=== PATIENT | female | born 1960 | race Hispanic/Latino ===

== ENCOUNTER 2018-08-01 08:58 | Emergency (ER) | payer SELFPAY ==
[2018-08-01] MEDS ORDERED: ALBUTEROL 2.5 MG/3 ML NEB SOL ONE (09:39)
[2018-08-01] MEDS ORDERED: IPRATROPIUM BROM 0.5MG/2.5ML ONE (09:39)
[2018-08-01] MEDS ORDERED: LORAZEPAM 0.5 MG TABLET ONE (09:40)
[2018-08-01] MEDS ORDERED: MAGNESIUM OXIDE 400 MG TAB ONE (09:40)
[2018-08-01] MEDS ORDERED: predniSONE 20 MG TAB ONE (09:40)
[2018-08-01] MEDS ORDERED: FAMOTIDINE 20 MG TAB ONE (09:41)
[2018-08-01] MEDS ORDERED: DEXAMETHASONE 10 MG/ML VIAL ONE (09:49)
--- NOTE | 2018-08-01 10:43 | ER ---
Nurse's Notes [facility] Name: Milka Riley Age: 58 yrs Sex: Female : 1960 Arrival Date: 08/01/2018 Time: 09:02 Bed 13 Private MD: None, None Diagnosis: Unspecified asthma with (acute) exacerbation Presentation: 08/01 09:13 Presenting complaint: Presenting complaint: SOB x 2 days. hb 09:13 Onset of symptoms was July 31, 2018. hb 09:13 Acuity: JASON 3 hb 09:13 Initial Sepsis Screen: Does the patient meet any 2 criteria? No. Patient's initial hb sepsis screen is negative. Does the patient have a suspected source of infection? No. Patient's initial sepsis screen is negative. 09:14 Transition of care: patient was not received from another setting of care. Risk hb Assessment: Do you want to hurt yourself or someone else? Patient reports no desire to harm self or others. Care prior to arrival: None. 09:14 Method Of Arrival: Ambulatory hb Triage Assessment: 09:15 General: Appears in no apparent distress. comfortable, Behavior is calm, cooperative. rb1 Historical: - Allergies: 09:12 moxifloxacin; hb - Home Meds: 09:13 levothyroxine oral [Active]; lisinopril 20 mg Oral tab 1 tab once daily [Active]; hb metoprolol tartrate 25 mg Oral tab 1 tab 2 times per day [Active]; prednisone 10 mg Oral tab once daily [Active]; Singulair 10 mg Oral tab 1 tab once daily [Active]; ventolin rotahaler inhl [Active]; - PMHx: 09:13 Asthma; Hypertension; Hypothyroidism; hb - Immunization history:: Adult Immunizations up to date. - Social history:: Smoking status: Patient/guardian denies using tobacco. - Ebola Screening: : No symptoms or risks identified at this time. Screenin:15 Abuse screen: Denies threats or abuse. Nutritional screening: No deficits noted. rb1 Tuberculosis screening: No symptoms or risk factors identified. Fall Risk None identified. Assessment: 09:15 General: Appears in no apparent distress. comfortable, obese, Behavior is calm, rb1 cooperative, Denies fever. Pain: Denies pain. Neuro: Level of Consciousness is awake, alert, obeys commands, Oriented to person, place, time, situation. Cardiovascular: Capillary refill < 3 seconds is brisk in bilateral fingers. Respiratory: Reports shortness of breath since x 2 days. GI: No signs and/or symptoms were reported involving the gastrointestinal system. : No signs and/or symptoms were reported regarding the genitourinary system. Derm: No signs and/or symptoms reported regarding the dermatologic system. Musculoskeletal: Range of motion: intact in all extremities. 10:15 Reassessment: Patient appears in no apparent distress at this time. Patient and/or rb1 family updated on plan of care and expected duration. Pain level reassessed. Patient is alert, oriented x 3, equal unlabored respirations, skin warm/dry/pink. Patient states symptoms have improved. 11:00 Reassessment: Patient appears in no apparent distress at this time. Patient and/or rb1 family updated on plan of care and expected duration. Pain level reassessed. Patient is alert, oriented x 3, equal unlabored respirations, skin warm/dry/pink. Patient denies pain at this time. Patient states feeling better. Vital Signs: 09:12 BP 196 / 88; Pulse 91; Resp 20; Temp 99.2(O); Pulse Ox 94% on R/A; hb 10:12 BP 183 / 83; Pulse 81; Resp 19; Pulse Ox 95% on R/A; rb1 11:00 BP 188 / 77; Pulse 79; Resp 20; Pulse Ox 95% on R/A; rb1 ED Course: 09:02 Patient arrived in ED. sb2 09:02 None, None is Private Physician. sb2 09:05 Cristina Peña, RN is Primary Nurse. rb1 09:07 [facility]C [facility]. snw 09:07 Gulshan Velez MD is Attending Physician. snw 09:13 Arm band placed on. hb 09:15 Patient has correct armband on for positive identification. Bed in low position. Call rb1 light in reach. Side rails up X 1. 09:26 Triage completed. hb 11:01 No provider procedures requiring assistance completed. Patient did not have IV access rb1 during this emergency room visit. Administered Medications: :32 Drug: Magnesium 400 mg Route: PO; rb1 10:00 Follow up: Response: No adverse reaction rb1 :32 Drug: Albuterol - atroVENT (3:1) (2.5 mg - 0.5 mg) 3 ml Route: Nebulizer; rb1 10:00 Follow up: Response: No adverse reaction; Marked relief of symptoms rb1 09:32 Drug: Pepcid 20 mg Route: PO; rb1 10:00 Follow up: Response: No adverse reaction rb1 09:32 Drug: Ativan 0.5 mg Route: PO; rb1 10:00 Follow up: Response: No adverse reaction; Anxiety decreased rb1 09:45 Drug: Decadron 10 mg Route: IM; Site: left deltoid; rb1 10:00 Follow up: Response: No adverse reaction rb1 09:56 Not Given (provider changed order): predniSONE 40 mg PO once rb1 Outcome: 10:42 Discharge ordered by . snw 11:01 Patient left the ED. rb1 11:01 Discharged to home ambulatory. rb1 11:01 Condition: stable 11:01 Discharge instructions given to patient, Instructed on discharge instructions, follow up and referral plans. medication usage, Demonstrated understanding of instructions, follow-up care, medications, Prescriptions given X 4. Signatures: Irina Martinez, GRINDER SET UP OPERATOR-C GRINDER SET UP OPERATOR-Csnw Cristina Peña, RN RN rb1 Ester Honeycutt, JENNIFER RN Tonya Molina sb2 Corrections: (The following items were deleted from the chart) 09:12 09:12 BP 196 / ???; Pulse 91bpm; Resp 88bpm; Pulse Ox 91% RA; Temp 99.2F Oral; hb hb 09:16 09:12 BP 196 / ???; Pulse 91bpm; Resp 20bpm; Pulse Ox 91% RA; Temp 99.2F Oral; hb hb 09:26 09:14 Presenting complaint: hb hb
--- NOTE | 2018-08-01 10:43 | EDPHYS ---
Physician Documentation [facility] Name: Milka Riley Age: 58 yrs Sex: Female : 1960 Arrival Date: 08/01/2018 Time: 09:02 Bed 13 Private MD: None, None ED Physician Gulshan Velez HPI: 08/01 09:40 This 58 yrs old Female presents to ER via Ambulatory with complaints of Asthma snw Exacerbation. 09:40 The patient presents to the emergency department with wheezing, Current therapy: snw albuterol nebs, that began weather, the patient was reported to have audible wheezing, chest tightness, non-productive cough, trouble breathing. Onset: The symptoms/episode began/occurred 4 day(s) ago, and became worse and became persistent. Associated signs and symptoms: The patient has no apparent associated signs or symptoms. Severity of symptoms: At their worst the symptoms were moderate severe in the emergency department the symptoms are unchanged. The patient has experienced similar episodes in the past, multiple times. The patient has not recently seen a physician. Historical: - Allergies: 09:12 moxifloxacin; hb - Home Meds: 09:13 levothyroxine oral [Active]; lisinopril 20 mg Oral tab 1 tab once daily [Active]; hb metoprolol tartrate 25 mg Oral tab 1 tab 2 times per day [Active]; prednisone 10 mg Oral tab once daily [Active]; Singulair 10 mg Oral tab 1 tab once daily [Active]; ventolin rotahaler inhl [Active]; - PMHx: 09:13 Asthma; Hypertension; Hypothyroidism; hb - Immunization history:: Adult Immunizations up to date. - Social history:: Smoking status: Patient/guardian denies using tobacco. - Ebola Screening: : No symptoms or risks identified at this time. ROS: 09:38 Constitutional: Negative for fever, chills, and weight loss, Eyes: Negative for injury, snw pain, redness, and discharge, ENT: Negative for injury, pain, and discharge, Neck: Negative for injury, pain, and swelling, Cardiovascular: Negative for chest pain, palpitations, and edema, Abdomen/GI: Negative for abdominal pain, nausea, vomiting, diarrhea, and constipation, Back: Negative for injury and pain, : Negative for injury, bleeding, discharge, and swelling, MS/Extremity: Negative for injury and deformity, Skin: Negative for injury, rash, and discoloration, Neuro: Negative for headache, weakness, numbness, tingling, and seizure, Psych: Negative for depression, anxiety, suicide ideation, homicidal ideation, and hallucinations. 09:38 Respiratory: Positive for cough, shortness of breath, at rest. wheezing. Exam: 09:37 Constitutional: This is a well developed, well nourished patient who is awake, alert, snw and in no acute distress. Head/Face: Normocephalic, atraumatic. Eyes: Pupils equal round and reactive to light, extra-ocular motions intact. Lids and lashes normal. Conjunctiva and sclera are non-icteric and not injected. Cornea within normal limits. Periorbital areas with no swelling, redness, or edema. ENT: Nares patent. No nasal discharge, no septal abnormalities noted. Tympanic membranes are normal and external auditory canals are clear. Oropharynx with no redness, swelling, or masses, exudates, or evidence of obstruction, uvula midline. Mucous membranes moist. Neck: Trachea midline, no thyromegaly or masses palpated, and no cervical lymphadenopathy. Supple, full range of motion without nuchal rigidity, or vertebral point tenderness. No Meningismus. Chest/axilla: Normal chest wall appearance and motion. Nontender with no deformity. No lesions are appreciated. Cardiovascular: Regular rate and rhythm with a normal S1 and S2. No gallops, murmurs, or rubs. Normal PMI, no JVD. No pulse deficits. Abdomen/GI: Soft, non-tender, with normal bowel sounds. No distension or tympany. No guarding or rebound. No evidence of tenderness throughout. Back: No spinal tenderness. No costovertebral tenderness. Full range of motion. Skin: Warm, dry with normal turgor. Normal color with no rashes, no lesions, and no evidence of cellulitis. MS/ Extremity: Pulses equal, no cyanosis. Neurovascular intact. Full, normal range of motion. Neuro: Awake and alert, GCS 15, oriented to person, place, time, and situation. Cranial nerves II-XII grossly intact. Motor strength 5/5 in all extremities. Sensory grossly intact. Cerebellar exam normal. Normal gait. 09:37 Respiratory: mild respiratory distress is noted, moderate respiratory distress is noted, Respirations: shallow respirations, tachypnea, Breath sounds: decreased breath sounds, that are severe. Vital Signs: 09:12 BP 196 / 88; Pulse 91; Resp 20; Temp 99.2(O); Pulse Ox 94% on R/A; hb 10:12 BP 183 / 83; Pulse 81; Resp 19; Pulse Ox 95% on R/A; rb1 11:00 BP 188 / 77; Pulse 79; Resp 20; Pulse Ox 95% on R/A; rb1 MDM: 09:16 Patient medically screened. snw 10:44 Data reviewed: vital signs, nurses notes. Data interpreted: Pulse oximetry: on room air snw is 92 %. Interpretation: hypoxia. Plan: will initiate a nebulizer treatment. Counseling: I had a detailed discussion with the patient and/or guardian regarding: the historical points, exam findings, and any diagnostic results supporting the discharge/admit diagnosis, the presence of at least one elevated blood pressure reading (>120/80) during this emergency department visit, the need for outpatient follow up, to return to the emergency department if symptoms worsen or persist or if there are any questions or concerns that arise at home. Response to treatment: the patient's symptoms have markedly improved after treatment. Special discussion: I have referred the patient to see his PCP for further evaluation of high blood pressure. Based on the history and exam findings, there is no indication for further emergent testing or inpatient evaluation. I discussed with the patient/guardian the need to see the primary care provider for further evaluation of the symptoms. Administered Medications: 09:32 Drug: Magnesium 400 mg Route: PO; rb1 10:00 Follow up: Response: No adverse reaction rb1 09:32 Drug: Albuterol - atroVENT (3:1) (2.5 mg - 0.5 mg) 3 ml Route: Nebulizer; rb1 10:00 Follow up: Response: No adverse reaction; Marked relief of symptoms rb1 :32 Drug: Pepcid 20 mg Route: PO; rb1 10:00 Follow up: Response: No adverse reaction rb1 09:32 Drug: Ativan 0.5 mg Route: PO; rb1 10:00 Follow up: Response: No adverse reaction; Anxiety decreased rb1 09:45 Drug: Decadron 10 mg Route: IM; Site: left deltoid; rb1 10:00 Follow up: Response: No adverse reaction rb1 09:56 Not Given (provider changed order): predniSONE 40 mg PO once rb1 Disposition: 11:49 Co-signature as Attending Physician, Gulshan Velez MD I agree with the assessment and kdr plan of care. Disposition: 08/01/18 10:42 Discharged to Home. Impression: Unspecified asthma with (acute) exacerbation. - Condition is Stable. - Discharge Instructions: Asthma, Adult, Form - Asthma Action Plan, Adult, Asthma Attack Prevention, Adult. - Prescriptions for Hydrochlorothiazide 25 mg Oral Tablet - take 1 tablet by ORAL route once daily .; 30 tablet. Albuterol Sulfate 2.5 mg /3 mL (0.083 %) Inhalation Solution for Nebulization - inhale 1 unit by NEBULIZATION route every 8 hours As needed; 1 box. Prednisone 20 mg Oral Tablet - take 2 tablet by ORAL route once daily for 5 days; 10 tablet. Albuterol Sulfate 90 mcg/actuation - inhale 1-2 puff by INHALATION route every 4-6 hours; 1 Inhaler. - Medication Reconciliation Form, Thank You Letter, Antibiotic Education, Prescription Opioid Use form. - Follow up: Emergency Department; When: As needed; Reason: Worsening of condition. Follow up: Private Physician; When: 1 week; Reason: Recheck today's complaints, Continuance of care, Re-evaluation by your physician. Signatures: Gulshan Velez MD MD [facility] Irina Martinez, ASSISTANT DESIGNER-C ASSISTANT DESIGNER-Csnw Cristina Peña, RN RN rb1 Ester Honeycutt RN RN Corrections: (The following items were deleted from the chart) 11:01 10:42 08/01/2018 10:42 Discharged to Home. Impression: Unspecified asthma with (acute) rb1 exacerbation. Condition is Stable. Forms are Medication Reconciliation Form, Thank You Letter, Antibiotic Education, Prescription Opioid Use. Follow up: Emergency Department; When: As needed; Reason: Worsening of condition. Follow up: Private Physician; When: 1 week; Reason: Recheck today's complaints, Continuance of care, Re-evaluation by your physician. snw
[2018-08-01 11:06] VITALS: TEMP 99.2
[2018-08-01 11:07] VITALS: O2SAT 95
[2018-08-01 11:09] VITALS: BP 188/77
== END 2018-08-01 11:01 | disposition home or self-care (01) ==
LOC: ER 08:58
DX: J45.901 Unspecified asthma with (acute) exacerbation (principal); I10 Essential (primary) hypertension; E03.9 Hypothyroidism, unspecified; Z88.8 Allergy status to other drugs, medicaments and biological substances
CPT/HCPCS: 94640; 96372; 99284; J1100; J7512

== ENCOUNTER 2019-01-01 14:53 | Emergency (ER) | payer SELFPAY ==
[2019-01-01] MEDS ORDERED: ALBUTEROL 2.5 MG/3 ML NEB SOL ONE ×2 (15:26→16:26)
[2019-01-01] MEDS ORDERED: IPRATROPIUM BROM 0.5MG/2.5ML ONE ×2 (15:26→16:26)
[2019-01-01] MEDS ORDERED: predniSONE 20 MG TAB ONE (15:27)
--- NOTE | 2019-01-01 16:13 | EDPHYS ---
Physician Documentation [facility] Name: Milka Riley Age: 58 yrs Sex: Female : 1960 Arrival Date: 01/01/2019 Time: 14:54 Bed 7 Private MD: None, None ED Physician Harvey Tirado HPI: 01/01 15:36 This 58 yrs old Female presents to ER via Ambulatory with complaints of Asthma kb Exacerbation. 15:36 The patient presents to the emergency department with wheezing, Current therapy: None. kb Onset: The symptoms/episode began/occurred yesterday. Modifying factors: The symptoms are alleviated by nothing, the symptoms are aggravated by nothing. Associated signs and symptoms: The patient has no apparent associated signs or symptoms. Severity of symptoms: At their worst the symptoms were moderate in the emergency department the symptoms are unchanged. The patient has experienced similar episodes in the past, chronically. The patient has not recently seen a physician. PT states she normally has asthma attacks 3 times per year. States this one started yesterday and she wanted to come in before it get too bad. States "it just feels tight when I breathe." Pt speaking in full sentences, no distress noted. Slight wheezing to right posterior chest on full expiration. States "I normally come here and they give me breathing treatments and steroids.". Historical: - Allergies: 15:00 moxifloxacin; hj - PMHx: 15:00 Asthma; Hypertension; Hypothyroidism; hj - PSHx: 15:00 None; hj - Immunization history:: Adult Immunizations up to date. - Social history:: Smoking status: Patient/guardian denies using tobacco. - Ebola Screening: : Patient denies travel to an Ebola-affected area in the 21 days before illness onset No symptoms or risks identified at this time. ROS: 15:35 Constitutional: Negative for fever, chills, and weight loss, Neck: Negative for injury, kb pain, and swelling, Cardiovascular: Negative for chest pain, palpitations, and edema, Abdomen/GI: Negative for abdominal pain, nausea, vomiting, diarrhea, and constipation, Back: Negative for injury and pain, MS/Extremity: Negative for injury and deformity, Skin: Negative for injury, rash, and discoloration, Neuro: Negative for headache, weakness, numbness, tingling, and seizure. 15:35 Respiratory: Positive for shortness of breath. Exam: 15:30 Constitutional: This is a well developed, well nourished patient who is awake, alert, kb and in no acute distress. Head/Face: Normocephalic, atraumatic. Chest/axilla: Normal chest wall appearance and motion. Nontender with no deformity. No lesions are appreciated. Cardiovascular: Regular rate and rhythm with a normal S1 and S2. No gallops, murmurs, or rubs. Normal PMI, no JVD. No pulse deficits. Abdomen/GI: Soft, non-tender, with normal bowel sounds. No distension or tympany. No guarding or rebound. No evidence of tenderness throughout. Skin: Warm, dry with normal turgor. Normal color with no rashes, no lesions, and no evidence of cellulitis. MS/ Extremity: Pulses equal, no cyanosis. Neurovascular intact. Full, normal range of motion. Neuro: Awake and alert, GCS 15, oriented to person, place, time, and situation. Cranial nerves II-XII grossly intact. Motor strength 5/5 in all extremities. Sensory grossly intact. Cerebellar exam normal. Normal gait. 15:30 Respiratory: the patient does not display signs of respiratory distress, Respirations: normal, Breath sounds: wheezing: expiratory that is mild, is heard in the left posterior upper lobe and left posterior lower lobe. Vital Signs: 15:00 BP 178 / 77; Pulse 80; Resp 22; Temp 98.0(O); Pulse Ox 92% ; Weight 163.29 kg; Height 5 hj ft. 5 in. (165.10 cm); Pain 0/10; 16:44 BP 150 / 80; Pulse 89; Resp 22; Pulse Ox 97% on R/A; ae4 15:00 Body Mass Index 59.91 (163.29 kg, 165.10 cm) hj MDM: 15:05 Patient medically screened. kb 15:30 Data reviewed: vital signs, nurses notes. Data interpreted: Pulse oximetry: on room air kb is 92 %. Interpretation: borderline. 16:11 Counseling: I had a detailed discussion with the patient and/or guardian regarding: the kb historical points, exam findings, and any diagnostic results supporting the discharge/admit diagnosis, the need for outpatient follow up, a family practitioner, to return to the emergency department if symptoms worsen or persist or if there are any questions or concerns that arise at home. ED course: Pt reports she is feeling much better. . Administered Medications: 15:11 Drug: DuoNeb (3:1) (2.5 mg - 0.5 mg) 3 ml Route: Nebulizer; ae4 16:43 Follow up: Response: Wheezing diminished ae4 15:11 Drug: predniSONE 60 mg Route: PO; ae4 16:43 Follow up: Response: No adverse reaction ae4 16:13 Drug: DuoNeb (3:1) (2.5 mg - 0.5 mg) 3 ml Route: Nebulizer; ae4 16:43 Follow up: Response: Wheezing diminished; SOB decreased. ae4 Disposition: 18:41 Co-signature as Attending Physician, Harvey Tirado MD. rn Disposition: 01/01/19 16:12 Discharged to Home. Impression: Unspecified asthma with (acute) exacerbation. - Condition is Stable. - Discharge Instructions: Asthma, Adult, [id number]. - Prescriptions for Prednisone 20 mg Oral Tablet - take 1 tablet by ORAL route once daily for 5 days; 5 tablet. - Medication Reconciliation Form, Thank You Letter, Antibiotic Education, Prescription Opioid Use form. - Follow up: Emergency Department; When: As needed; Reason: Worsening of condition. Follow up: Private Physician; When: 2 - 3 days; Reason: Recheck today's complaints, Continuance of care, Re-evaluation by your physician. Signatures: Debora Gold, COURT ADMINISTRATOR-C COURT ADMINISTRATOR-Ckb Joanne Menchaca RN RN iw Nieto, Roman, MD MD rn Joaquin, Henry, RN RN hj Elliott, Andrea, RN RN ae4 Corrections: (The following items were deleted from the chart) 15:38 15:36 PT states she normally has asthma attacks 3 times per year. States this one kb started yesterday and she wanted to come in before it get too bad. States "it just feels tight when I breathe." Pt speaking in full sentences, no distress noted. Slight wheezing to right posterior chest on full expiration. . kb 16:48 16:12 01/01/2019 16:12 Discharged to Home. Impression: Unspecified asthma with (acute) iw exacerbation. Condition is Stable. Forms are Medication Reconciliation Form, Thank You Letter, Antibiotic Education, Prescription Opioid Use. Follow up: Emergency Department; When: As needed; Reason: Worsening of condition. Follow up: Private Physician; When: 2 - 3 days; Reason: Recheck today's complaints, Continuance of care, Re-evaluation by your physician. kb
--- NOTE | 2019-01-01 16:13 | ER ---
Nurse's Notes [facility] Name: Milka Riley Age: 58 yrs Sex: Female : 1960 Arrival Date: 01/01/2019 Time: 14:54 Bed 7 Private MD: None, None Diagnosis: Unspecified asthma with (acute) exacerbation Presentation: 01/01 14:58 Presenting complaint: Patient states: i have asthma attack, i feel tight in my throat hj area and i have wheezing; it started yesterday afternoon; denies fever;. Transition of care: patient was not received from another setting of care. Onset of symptoms was January 01, 2019. Risk Assessment: Do you want to hurt yourself or someone else? Patient reports no desire to harm self or others. Initial Sepsis Screen: Does the patient meet any 2 criteria? No. Patient's initial sepsis screen is negative. Does the patient have a suspected source of infection? No. Patient's initial sepsis screen is negative. Care prior to arrival: None. 14:58 Method Of Arrival: Ambulatory 14:58 Acuity: JASON 3 hj Historical: - Allergies: 15:00 moxifloxacin; hj - PMHx: 15:00 Asthma; Hypertension; Hypothyroidism; hj - PSHx: 15:00 None; hj - Immunization history:: Adult Immunizations up to date. - Social history:: Smoking status: Patient/guardian denies using tobacco. - Ebola Screening: : Patient denies travel to an Ebola-affected area in the 21 days before illness onset No symptoms or risks identified at this time. Screenin:29 Abuse screen: Denies threats or abuse. Nutritional screening: No deficits noted. ae4 Tuberculosis screening: No symptoms or risk factors identified. Fall Risk None identified. Assessment: 15:05 General: Appears uncomfortable, obese, Behavior is cooperative, anxious. Pain: Denies ae4 pain. Neuro: Level of Consciousness is awake, alert, obeys commands, Oriented to person, place, time, situation. Cardiovascular: Heart tones S1 S2 present Patient's skin is warm and dry. Respiratory: Airway is patent Respiratory effort is even, unlabored, Respiratory pattern is regular, symmetrical, tachypnea Breath sounds with wheezes bilaterally. Respiratory: Reports shortness of breath air hunger labored breathing Respiratory pattern is Mildly labored. GI: Abdomen is round obese. : No signs and/or symptoms were reported regarding the genitourinary system. EENT: No signs and/or symptoms were reported regarding the EENT system. Derm: No signs and/or symptoms reported regarding the dermatologic system. Musculoskeletal: No signs and/or symptoms reported regarding the musculoskeletal system. 15:26 Reassessment: Patient states she is already feeling relief from the breathing treatment.ae4 16:28 Reassessment: Patient appears in no apparent distress at this time. Patient has 2nd ae4 nebulizer treatment diffusing. Patient states feeling better. Patient states symptoms have improved. Vital Signs: 15:00 BP 178 / 77; Pulse 80; Resp 22; Temp 98.0(O); Pulse Ox 92% ; Weight 163.29 kg; Height 5 hj ft. 5 in. (165.10 cm); Pain 0/10; 16:44 BP 150 / 80; Pulse 89; Resp 22; Pulse Ox 97% on R/A; ae4 15:00 Body Mass Index 59.91 (163.29 kg, 165.10 cm) ED Course: 14:54 Patient arrived in ED. mr 14:54 None, None is Private Physician. mr 14:59 Triage completed. hj 15:01 Debora Gold FNP-C is PHCP. kb 15:02 Arm band placed on right wrist. hj 15:04 Debora Gold FNP-C is PHCP. kb 15:04 Harvey Tirado MD is Attending Physician. kb 15:08 Alfie Guerrero, JENNIFER is Primary Nurse. ae4 15:10 Bed in low position. Call light in reach. Side rails up X 1. Pulse ox on. ae4 16:45 No provider procedures requiring assistance completed. Patient did not have IV access ae4 during this emergency room visit. Administered Medications: 15:11 Drug: DuoNeb (3:1) (2.5 mg - 0.5 mg) 3 ml Route: Nebulizer; ae4 16:43 Follow up: Response: Wheezing diminished ae4 15:11 Drug: predniSONE 60 mg Route: PO; ae4 16:43 Follow up: Response: No adverse reaction ae4 16:13 Drug: DuoNeb (3:1) (2.5 mg - 0.5 mg) 3 ml Route: Nebulizer; ae4 16:43 Follow up: Response: Wheezing diminished; SOB decreased. ae4 Intake: Outcome: 16:12 Discharge ordered by MD. lange 16:45 Discharged to home ambulatory. ae4 16:45 Condition: stable 16:45 Discharge instructions given to patient, Instructed on discharge instructions, follow up and referral plans. medication usage, Demonstrated understanding of instructions. 16:48 Patient left the ED. iw Signatures: Debora Gold, [employer]Flaca Alvarado mr Joanne Menchaca RN RN iw Yair Hernandes, Alfie Ge RN, JENNIFER RN ae4 Corrections: (The following items were deleted from the chart) 15:04 15:00 Pulse 80bpm; Resp 22bpm; Pulse Ox 92%; Temp 98.0F Oral; 163.29 kg; Height 5 ft. 5 hj in.; BMI: 59.9; Pain 0/10; hj
[2019-01-01 16:57] VITALS: TEMP 98
[2019-01-01 16:59] VITALS: BP 150/80; O2SAT 97
== END 2019-01-01 16:48 | disposition home or self-care (01) ==
LOC: ER 14:53
DX: J45.901 Unspecified asthma with (acute) exacerbation (principal); I10 Essential (primary) hypertension; Z88.8 Allergy status to other drugs, medicaments and biological substances
CPT/HCPCS: 94640; 99284; J7512

== ENCOUNTER 2024-02-03 10:21 | Emergency (ER) | payer SELFPAY ==
[2024-02-03 11:12] LABS: Absolute Basophils 0.1 K/uL (0-0.5); Absolute Eosinophils 0.3 K/uL (0-0.5); Absolute Lymphocytes (CBC) 3.3 K/uL (0.7-4.9); Absolute Monocytes 0.8 K/uL (0.1-1.3); Absolute Neutrophil 8.7 K/uL (1.8-8.0); Basophils % 0.5 % (0-1.3); Eosinophils % 2.6 % (0-4.4); Hematocrit 45.6 % (36.0-45.0); Lymphocytes % 25.1 % (15.3-44.8); MCH 28.1 pg (27.0-35.0); MCV 85.1 fL (80-100); MPV 8.4 fL (7.6-11.3); Neutrophils % 65.8 % (41.7-73.7); Platelets 292 thou/uL (152-406); RBC Red Blood Cell Count 5.36 M/uL (3.86-4.86); Red Cell Distribution Width 15.4 % (12.1-15.2)
[2024-02-03 11:29] LABS: Anion Gap 7.4 mEq/L (5.0-15.0); Potassium 3.4 mEq/L (3.5-5.1); Troponin High Sensitivity 10.6 pg/mL (<58.9)
--- NOTE | 2024-02-03 11:45 | RAD REPORT ---
EXAM DESCRIPTION: Criss Single View02/03/2024 11:14 am CLINICAL HISTORY: hypertension COMPARISON: 2015 FINDINGS: Pulmonary vascular congestion present Heart is moderately enlarged Lungs appear clear of acute infiltrate
[2024-02-03] MEDS ORDERED: hydroCHLOROthiazide 25 MG TAB ONE (12:16)
[2024-02-03] MEDS ORDERED: AMLODIPINE 5 MG TAB ONE (12:16)
--- NOTE | 2024-02-03 13:02 | EDPHYS ---
Physician Documentation [facility] Name: Milka Riley Age: 63 yrs Sex: Female : 1960 Arrival Date: 02/03/2024 Time: 10:21 Bed 20 Private MD: ED Physician Jack Hood HPI: 02/02 12:57 This 63 yrs old Female presents to ER via EMS with complaints of High Blood kb Pressure. 12:57 Pt is a 63 year old female who presents for dizziness, lightheadedness and high blood kb pressure that started last night. States this is how she normally feels when her BP gets high. Reports she hasn't taken blood pressure medication in about a year because she didn't pay a bill at her dr's office so they stopped seeing her. Pt is supposed to take amlodipine 5mg daily and hydrochlorathiazide 25mg daily for HTN. . Historical: - Allergies: 10:36 moxifloxacin; ph - PMHx: 10:36 Asthma; Hypertension; Hypothyroidism; ph - Immunization history:: Adult Immunizations unknown. - Infectious Disease History:: Denies. - Social history:: Smoking status: Patient denies any tobacco usage or history of. ROS: 12:57 Constitutional: As per HPI kb Exam: 12:25 Constitutional: This is a well developed, well nourished patient who is awake, alert, kb and in no acute distress. Head/Face: Normocephalic, atraumatic. ENT: Moist Mucous membranes Cardiovascular: Regular rate Respiratory: Respirations even and unlabored. No increased work of breathing. Talking in full sentences Abdomen/GI: Soft, non-tender. No distention Skin: Warm, dry with normal turgor. Normal color. MS/ Extremity: Pulses equal, no cyanosis. Neurovascular intact. Full, normal range of motion. Neuro: Awake and alert, GCS 15, oriented to person, place, time, and situation. Moves all extremities. Normal gait. 12:25 ECG was reviewed by the Attending Physician. Vital Signs: 10:33 BP 222 / 104; Pulse 67; Resp 18; Temp 97.6; Pulse Ox 97% on R/A; Weight 170.1 kg; ph Height 5 ft. 5 in. ; 12:28 BP 182 / 69; Pulse 63 MON; Resp 24 S; Pulse Ox 99% on R/A; le1 13:51 BP 181 / 79; Pulse 62; Resp 18; Temp 98.3; Pulse Ox 98% ; le1 10:33 Body Mass Index 62.40 (170.10 kg, 165.1 cm) ph MDM: 10:34 Patient medically screened. kb 12:59 Differential diagnosis: Malignant HTN, abnormal electrolytes, HI. Data reviewed: vital kb signs, nurses notes. Consideration of Admission/Observation Escalation of care including admission/observation considered. admission considered but blood pressure trending down and pt is feeling better. Pt able to ambulate to restroom and states she feels like she is ready to go home. Will refill her HCTZ and amlodipine. Pt educated to follow up with PCP. Counseling: I had a detailed discussion with the patient and/or guardian regarding the historical points, exam findings, and any diagnostic results supporting the discharge/admit diagnosis, lab results, radiology results, the need for outpatient follow up, a family practitioner, to return to the emergency department if symptoms worsen or persist or if there are any questions or concerns that arise at home. 02/02 10:57 Order name: Basic Metabolic Panel; Complete Time: 11:43 kb 02/02 10:57 Order name: CBC with Diff; Complete Time: 11:22 kb 02/02 10:57 Order name: Magnesium; Complete Time: 11:43 kb 02/02 10:57 Order name: NT PRO-BNP; Complete Time: 11:43 kb 02/02 10:57 Order name: Troponin HS; Complete Time: 11:43 kb 02/02 10:57 Order name: XRAY Chest (1 view); Complete Time: 11:50 kb 02/02 10:57 Order name: EKG; Complete Time: 10:58 kb 02/02 10:57 Order name: Cardiac monitoring; Complete Time: 11:37 kb 02/02 10:57 Order name: EKG - Nurse/Tech; Complete Time: 11:37 kb 02/02 10:57 Order name: IV Saline Lock; Complete Time: 11:00 kb 02/02 10:57 Order name: Labs collected and sent; Complete Time: 11:00 kb 02/02 10:57 Order name: O2 Per Protocol; Complete Time: 11:37 kb 02/02 10:57 Order name: O2 Sat Monitoring; Complete Time: 11:37 kb 02/02 12:25 Order name: Vital Signs; Complete Time: 12:39 kb EC: Rate is 62 beats/min. Rhythm is regular. QRS [place] is Normal. AR interval is normal at kb 176 msec. QRS interval is normal at 92 msec. QT interval is normal at 424 msec. Administered Medications: 12:27 Drug: Norvasc PO 5 mg PO once Route: PO; le1 13:53 Follow up: Response: No adverse reaction; Blood pressure is lowered le1 12:27 Drug: Hydrochlorothiazide PO 25 mg PO once Route: PO; le1 13:53 Follow up: Response: No adverse reaction; Blood pressure is lowered le1 Disposition Summary: 02/03/24 13:01 Discharge Ordered Notes: Location: Home kb Condition: Stable kb Diagnosis - Essential (primary) hypertension kb Followup: kb - With: Emergency Department - When: As needed - Reason: Worsening of condition Followup: kb - With: Private Physician - When: 2 - 3 days - Reason: Recheck today's complaints, Continuance of care, Re-evaluation by your physician Discharge Instructions: - Discharge Summary Sheet kb - Hypertension, Adult, [id number] kb - How to Take Your Blood Pressure, [id number] kb - Managing Your Hypertension kb Forms: - Medication Reconciliation Form kb - Antibiotic Education kb - Prescription Opioid Use kb - Patient Portal Instructions kb - Leadership Thank You Letter kb Prescriptions: - Norvasc 5 mg Oral tablet - take 1 tablet ORAL route once daily; 30 tablet; Refills: 0, Product Selection kb Permitted - Hydrochlorothiazide 25 mg Oral Tablet - take 1 tablet ORAL route once daily .; 30 tablet; Refills: 0, Product Selection kb Permitted Signatures: Dispatcher [employer] EDMS Debora Gold, DEVELOPMENTAL EDUCATION INSTRUCTOR-C DEVELOPMENTAL EDUCATION INSTRUCTOR-Yue Dean RN RN Janusz Olson RN RN le1 Corrections: (The following items were deleted from the chart) 10:58 10:58 BASIC METABOLIC PANEL+C.LAB.BRZ ordered. EDMS EDMS 10:58 10:58 CBC+H.LAB.BRZ ordered. EDMS EDMS 10:58 10:58 MAGNESIUM+C.LAB.BRZ ordered. EDMS EDMS 10:58 10:58 PROBNP+C.LAB.BRZ ordered. EDMS EDMS 10:58 10:58 Troponin High Sensitivity+C.LAB.BRZ ordered. EDMS EDMS
--- NOTE | 2024-02-03 13:02 | ER ---
Nurse's Notes [facility] Name: Milka Riley Age: 63 yrs Sex: Female : 1960 Arrival Date: 02/03/2024 Time: 10:21 Bed 20 Private MD: Diagnosis: Essential (primary) hypertension Presentation: 02/02 10:33 Chief complaint: EMS states: Pt c/o dizziness since yesterday, BP high w/ systolic 200, ph pt reports hx of HTN but has not been on medication for a approx 1 year, denies chest pain or headache. Coronavirus screen: Vaccine status: Patient reports receiving the 2nd dose of the covid vaccine. Ebola Screen: No symptoms or risks identified at this time. Initial Sepsis Screen: Does the patient meet any 2 criteria? No. Patient's initial sepsis screen is negative. Does the patient have a suspected source of infection? No. Patient's initial sepsis screen is negative. Risk Assessment: Do you want to hurt yourself or someone else? Patient reports no desire to harm self or others. Onset of symptoms was February 03, 2024. 10:33 Method Of Arrival: EMS: [facility] ph 10:33 Acuity: JASON 2 ph Historical: - Allergies: 10:36 moxifloxacin; ph - PMHx: 10:36 Asthma; Hypertension; Hypothyroidism; ph - Immunization history:: Adult Immunizations unknown. - Infectious Disease History:: Denies. - Social history:: Smoking status: Patient denies any tobacco usage or history of. Screenin:[address] [facility] ED Fall Risk Assessment (Adult) History of falling in the last 3 months, le1 including since admission No falls in past 3 months (0 pts) Confusion or Disorientation No (0 pts) Intoxicated or Sedated No (0 pts) Impaired Gait Yes (1 pt) Mobility Assist Device Used No (0 pt) Altered Elimination No (0 pt) Score/Fall Risk Level 0 - 2 = Low Risk Oriented to surroundings, Maintained a safe environment, Educated pt \T\ family on fall prevention, incl call for assistance when getting out of bed, Assessed \T\ reinforced patient's understanding of fall precautions, Hourly rounding (assess needs \T\ fall precautionary measures) done. Abuse screen: Denies threats or abuse. Nutritional screening: No deficits noted. Tuberculosis screening: No symptoms or risk factors identified. Assessment: 12:27 Reassessment: No changes from previously documented assessment. General: Appears in no le1 apparent distress. comfortable, Behavior is calm, cooperative. Pain: Denies pain. Neuro: No deficits noted. Cardiovascular: No deficits noted. Respiratory: No deficits noted. GI: No deficits noted. : No deficits noted. Vital Signs: 10:33 BP 222 / 104; Pulse 67; Resp 18; Temp 97.6; Pulse Ox 97% on R/A; Weight 170.1 kg; ph Height 5 ft. 5 in. ; 12:28 BP 182 / 69; Pulse 63 MON; Resp 24 S; Pulse Ox 99% on R/A; le1 13:51 BP 181 / 79; Pulse 62; Resp 18; Temp 98.3; Pulse Ox 98% ; le1 10:33 Body Mass Index 62.40 (170.10 kg, 165.1 cm) ph ED Course: 10:33 Patient arrived in ED. ph 10:34 Debora Gold FNP-C [facility]. kb 10:34 Jack Hood MD is Attending Physician. kb 10:35 Triage completed. ph 10:36 Arm band placed on Patient placed. ph 10:51 Janusz Olson RN is Primary Nurse. le1 10:59 Inserted saline lock: 20 gauge in right antecubital area, using aseptic technique. zm Blood collected. 10:59 Initial lab(s) drawn, by pa, sent to lab. zm 11:00 Basic Metabolic Panel Sent. zm 11:00 CBC with Diff Sent. zm 11:00 Magnesium Sent. zm 11:00 NT PRO-BNP Sent. zm 11:00 Troponin HS Sent. zm 11:15 XRAY Chest (1 view) In Process Unspecified. EDMS 11:37 EKG done, by ED staff, reviewed by Debora BARBER. zm 12:30 Patient has correct armband on for positive identification. Placed in gown. Bed in low le1 position. Call light in reach. Side rails up X2. Provided Education on: Use call light for assistance. 13:52 No provider procedures requiring assistance completed. IV discontinued, intact, le1 bleeding controlled, No redness/swelling at site. Pressure dressing applied. Administered Medications: 12:27 Drug: Norvasc PO 5 mg PO once Route: PO; le1 13:53 Follow up: Response: No adverse reaction; Blood pressure is lowered le1 12:27 Drug: Hydrochlorothiazide PO 25 mg PO once Route: PO; le1 13:53 Follow up: Response: No adverse reaction; Blood pressure is lowered le1 Medication: 13:52 VIS not applicable for this client. le1 Outcome: 13:01 Discharge ordered by . kb 13:52 Discharged to home via wheelchair, le1 13:52 Condition: improved 13:52 Discharge instructions given to patient, Instructed on discharge instructions, follow up and referral plans. medication usage, Demonstrated understanding of instructions, follow-up care, medications, Prescriptions given X 2, 13:54 Patient left the ED. le1 Signatures: Dispatcher [employer] EDDebora Quinn, DIRECTOR PROPERTY-C LUIS A-Yue Dean, RN RN Anaya Thapa LaKendric, RN RN le1
[2024-02-03 14:16] VITALS: BP 181/79; TEMP 98.3; O2SAT 98
--- NOTE | 2024-02-06 12:18 | EKG ---
Test Date: 2024-02-03 Test Time: 11:42:04 Sponge Maker: CHELO MEASUREMENT RESULTS: Intervals: Rate: 62 RI: 176 QRSD: 92 QT: 418 QTc: 424 [place]: P: 64 RI: 176 QRS: 72 T: 29 INTERPRETIVE STATEMENTS: Normal sinus rhythm Possible Anterior infarct, age undetermined Abnormal ECG Compared to ECG 09/27/2016 08:53:55 Myocardial infarct finding now present Electronically Signed On 02-06-24 12:13:12 CDT by Arnold Holcomb
== END 2024-02-03 13:54 | disposition home or self-care (01) ==
LOC: ER 10:21
DX: I10 Essential (primary) hypertension (principal); E03.9 Hypothyroidism, unspecified; J45.909 Unspecified asthma, uncomplicated; Z88.1 Allergy status to other antibiotic agents
CPT/HCPCS: 36415; 71045; 80048; 83735; 83880; 84484; 85025; 93005; 99284